=== PATIENT | male | born 1985 | race African-American/Black ===

== ENCOUNTER 2020-09-28 20:37 | Inpatient (IN) | payer MEDICAID, OTHER ==
[~2020-09-28] VITALS: Ht 182.9 cm; Wt 181.4 kg
[~2020-09-28 20:37] MED LIST: ALBU6.7H9 INH; APIX5TAB PO; FERR325T6 PO; FURO-151 MT; LEVO500T89 MT; PROM6.254 PO; REV20 PO; TOPUD PO
[2020-09-28 22:48] LABS: HEMATOCRIT. 32.8 % (42.0-52.0); HEMOGLOBIN. 10.8 g/dL (14.0-18.0); MEAN CORPUSCULAR HEMOGLOBIN 29.9 pg (28.0-32.0); MEAN CORPUSCULAR VOLUME 90.5 fL (80.0-94.0); MEAN PLATELET VOLUME 6.3 fl (7.4-10.4); PLATELET 348 x1000/uL (130-400); RED BLOOD CELL COUNT 3.62 mill/uL (4.7-6.1); RED CELL DISTRIBUTION WIDTH 18.3 % (11.6-14.6)
[2020-09-28 22:55] LABS: CHLORIDE 103 mEq/L (98-107)
[2020-09-28] MEDS ORDERED: HEPARIN 5000 UNITS/ML VIAL IV PRN ×2 (23:30)
[2020-09-28] MEDS ORDERED: HEPARIN 25,000 UNITS PREMIX 250 ML IV PRN (23:30)
[2020-09-29] MEDS ORDERED: IOHEXOL-350 100 ML BOTTLE ONE (01:07)
[2020-09-29 01:43] LABS: PLATELET ESTIMATE NORMAL
[2020-09-29] MEDS ORDERED: APIXABAN 5 MG TABLET PO SCH ×2 (02:00→12:15)
[2020-09-29] MEDS ORDERED: MORPHINE SULFATE 2 MG/ML CPJ (NOT FOR IM USE) IV SCH (05:30)
[2020-09-29] MEDS ORDERED: ONDANSETRON HCL 4MG/2ML INJ IV PRN (09:15)
[2020-09-29 10:34] VITALS: BP 121/64
[2020-09-29 12:27] VITALS: BP 126/61
[2020-09-29] MEDS: APIXABAN 5 MG TABLET PO SCH ×2 (13:00→20:55)
[2020-09-29] MEDS ORDERED: FUROSEMIDE 40MG/4ML VIAL IVP SCH (15:00)
[2020-09-29] MEDS ORDERED: SILDENAFIL CITRATE 20MG TABLET PO SCH (15:00)
[2020-09-29 16:12] VITALS: BP 123/68
[2020-09-29] MEDS: ACETAMINOPHEN 325MG TABLET PO PRN (18:34)
[2020-09-29] MEDS: FUROSEMIDE 40MG/4ML VIAL IVP SCH (18:36)
[2020-09-29] MEDS: SILDENAFIL CITRATE 20MG TABLET PO SCH ×2 (18:36→20:55)
[2020-09-29 20:00] VITALS: BP 129/75
[2020-09-29] MEDS: FAMOTIDINE 20MG TABLET PO SCH (20:54)
[2020-09-29] MEDS: GUAIFENESIN 600MG ER TABLET PO SCH (20:55)
[2020-09-29 23:00] LABS: *AMPHETAMINES SCREEN URINE NEGATIVE (NEGATIVE); *BARBITURATES SCREEN URINE NEGATIVE (NEGATIVE); *BENZODIAZEPINES SCREEN URINE NEGATIVE (NEGATIVE); *COCAINE SCREEN URINE NEGATIVE (NEGATIVE); METHADONE URINE SCREEN NEGATIVE (NEGATIVE); OPIATES URINE SCREEN NEGATIVE (NEGATIVE)
[2020-09-29 23:01] LABS: CANNABINOID URINE SCREEN NEGATIVE (NEGATIVE); PHENCYCLIDINE URINE SCREEN NEGATIVE (NEGATIVE)
[2020-09-30] VITALS (7 sets, daily range): BP systolic 116–138; BP diastolic 69–84
[2020-09-30] MEDS: ACETAMINOPHEN 325MG TABLET PO PRN ×3 (04:58→21:49)
[2020-09-30] MEDS ORDERED: MORPHINE SULFATE 2 MG/ML CPJ (NOT FOR IM USE) IV PRN (05:00)
[2020-09-30 05:43] LABS: BASOPHILS % 0.2 % (0.0-2.0); EOSINOPHILS % 1.2 % (0.0-5.0); HEMATOCRIT. 33.1 % (42.0-52.0); HEMOGLOBIN. 10.6 g/dL (14.0-18.0); LYMPHOCYTES % 27.6 % (20.0-50.0); MEAN CORPUSCULAR HEMOGLOBIN 28.9 pg (28.0-32.0); MEAN PLATELET VOLUME 6.5 fl (7.4-10.4); MONOCYTES % 12.6 % (2.0-8.0); NEUTROPHILS % 58.4 % (40.0-76.0); PLATELET 336 x1000/uL (130-400); RED BLOOD CELL COUNT 3.68 mill/uL (4.7-6.1); RED CELL DISTRIBUTION WIDTH 17.9 % (11.6-14.6)
[2020-09-30 05:48] LABS: CHLORIDE 105 mEq/L (98-107)
[2020-09-30] MEDS: SILDENAFIL CITRATE 20MG TABLET PO SCH ×3 (06:00→21:31)
[2020-09-30] MEDS: APIXABAN 5 MG TABLET PO SCH ×2 (08:37→17:33)
[2020-09-30] MEDS: GUAIFENESIN 600MG ER TABLET PO SCH ×2 (08:37→21:28)
[2020-09-30] MEDS: FUROSEMIDE 40MG/4ML VIAL IVP SCH (08:37)
[2020-09-30] MEDS: IPRATROPIUM/ALBUTEROL 0.5-3(2.5)MG/3ML NEB HHN PRN (12:36)
[2020-09-30] MEDS ORDERED: HYDROCODONE/ACETAMINOPHEN 5/325MG TABLET PO PRN (13:00)
[2020-09-30] MEDS: CEFTRIAXONE 1,000 MG in DEXTROSE 5% WATER 50 ML IV SCH (14:54)
[2020-09-30] MEDS: FAMOTIDINE 20MG TABLET PO SCH (21:28)
[2020-10-01] MEDS ORDERED: HYDROCODONE/ACETAMINOPHEN 10/325MG TABLET PO PRN (01:30)
[2020-10-01 05:56] VITALS: BP 149/80
[2020-10-01 06:20] LABS: CHLORIDE 103 mEq/L (98-107)
[2020-10-01] MEDS: SILDENAFIL CITRATE 20MG TABLET PO SCH ×3 (06:37→20:59)
[2020-10-01 07:09] LABS: HEMATOCRIT. 32.9 % (42.0-52.0); HEMOGLOBIN. 10.6 g/dL (14.0-18.0); MEAN CORPUSCULAR HEMOGLOBIN 29.4 pg (28.0-32.0); MEAN CORPUSCULAR VOLUME 90.9 fL (80.0-94.0); MEAN PLATELET VOLUME 6.6 fl (7.4-10.4); PLATELET 337 x1000/uL (130-400); RED BLOOD CELL COUNT 3.62 mill/uL (4.7-6.1); RED CELL DISTRIBUTION WIDTH 18.1 % (11.6-14.6)
[2020-10-01 08:00] VITALS: BP 138/74
[2020-10-01] MEDS: APIXABAN 5 MG TABLET PO SCH ×2 (08:26→16:40)
[2020-10-01] MEDS: FUROSEMIDE 40MG/4ML VIAL IVP SCH (08:26)
[2020-10-01] MEDS: AZITHROMYCIN 250 MG TABLET PO SCH (08:26)
[2020-10-01] MEDS: GUAIFENESIN 600MG ER TABLET PO SCH ×2 (08:26→22:16)
[2020-10-01] MEDS ORDERED: POTASSIUM CHLORIDE 20MEQ TABLET SR PO SCH (08:45)
[2020-10-01] MEDS ORDERED: PHENOL/SODIUM PHENOLATE 1.4% SRPAY 177ML MM ONE (11:30)
[2020-10-01 12:00] VITALS: BP 136/72
[2020-10-01] MEDS: ACETAMINOPHEN 325MG TABLET PO PRN ×2 (12:11→20:58)
[2020-10-01] MEDS: IPRATROPIUM/ALBUTEROL 0.5-3(2.5)MG/3ML NEB HHN PRN ×3 (12:13→20:34)
[2020-10-01 13:04] LABS: PLATELET ESTIMATE NORMAL
[2020-10-01] MEDS: CEFTRIAXONE 1,000 MG in DEXTROSE 5% WATER 50 ML IV SCH (13:34)
[2020-10-01 16:00] VITALS: BP 144/79
[2020-10-01 20:00] VITALS: BP 125/88
[2020-10-01] MEDS: FAMOTIDINE 20MG TABLET PO SCH (20:58)
[2020-10-02] VITALS: BP 112/50
[2020-10-02 04:00] VITALS: BP 123/54
[2020-10-02] MEDS: IPRATROPIUM/ALBUTEROL 0.5-3(2.5)MG/3ML NEB HHN PRN ×3 (04:12→11:59)
[2020-10-02] MEDS: SILDENAFIL CITRATE 20MG TABLET PO SCH ×3 (06:35→21:59)
[2020-10-02 08:00] VITALS: BP 118/63
[2020-10-02] MEDS: AZITHROMYCIN 250 MG TABLET PO SCH (08:28)
[2020-10-02] MEDS: APIXABAN 5 MG TABLET PO SCH ×2 (08:28→17:16)
[2020-10-02] MEDS: FUROSEMIDE 40MG/4ML VIAL IVP SCH (08:28)
[2020-10-02] MEDS: GUAIFENESIN 600MG ER TABLET PO SCH ×2 (08:28→21:59)
[2020-10-02] MEDS ORDERED: PHENOL/SODIUM PHENOLATE 1.4% SRPAY 177ML MM PRN (10:30)
[2020-10-02 12:00] VITALS: BP 119/57
[2020-10-02] MEDS: CEFTRIAXONE 1,000 MG in DEXTROSE 5% WATER 50 ML IV SCH (15:00)
[2020-10-02 16:00] VITALS: BP 117/54
[2020-10-02] MEDS: IPRATROPIUM/ALBUTEROL 0.5-3(2.5)MG/3ML NEB HHN SCH (21:10)
[2020-10-02] MEDS: FAMOTIDINE 20MG TABLET PO SCH (21:59)
[2020-10-03] VITALS: BP 115/65
[2020-10-03] MEDS: IPRATROPIUM/ALBUTEROL 0.5-3(2.5)MG/3ML NEB HHN SCH ×4 (00:40→21:20)
[2020-10-03 04:00] VITALS: BP 114/58
[2020-10-03] MEDS: SILDENAFIL CITRATE 20MG TABLET PO SCH ×3 (06:39→21:57)
[2020-10-03] MEDS: GUAIFENESIN-DM 200MG-20MG/10ML UDC PO PRN (06:48)
[2020-10-03 08:58] VITALS: BP 88/35
[2020-10-03] MEDS: GUAIFENESIN 600MG ER TABLET PO SCH ×2 (09:00→21:57)
[2020-10-03] MEDS: FUROSEMIDE 40MG/4ML VIAL IVP SCH (09:00)
[2020-10-03] MEDS: AZITHROMYCIN 250 MG TABLET PO SCH (09:38)
[2020-10-03] MEDS: APIXABAN 5 MG TABLET PO SCH ×2 (09:38→18:04)
[2020-10-03] MEDS ORDERED: SODIUM CHLORIDE 0.9% 500 ML IV ONE (09:45)
[2020-10-03 11:49] VITALS: BP 116/75
[2020-10-03] MEDS ORDERED: FUROSEMIDE 40MG/4ML VIAL IVP SCH (13:00)
[2020-10-03] MEDS: CEFTRIAXONE 1,000 MG in DEXTROSE 5% WATER 50 ML IV SCH (13:18)
[2020-10-03 16:22] VITALS: BP 113/71
[2020-10-03] MEDS ORDERED: ALBU6.7H9 INH (16:59)
[2020-10-03] MEDS ORDERED: REV20 PO (16:59)
[2020-10-03] MEDS ORDERED: FURO-151 MT (16:59)
[2020-10-03] MEDS ORDERED: LEVO500T89 MT (16:59)
[2020-10-03] MEDS ORDERED: APIX5TAB PO (16:59)
[2020-10-03 20:00] VITALS: BP 130/95
[2020-10-03] MEDS: FAMOTIDINE 20MG TABLET PO SCH (21:57)
[2020-10-04] VITALS: BP 120/60
[2020-10-04] MEDS: IPRATROPIUM/ALBUTEROL 0.5-3(2.5)MG/3ML NEB HHN SCH ×3 (01:41→14:23)
[2020-10-04 04:00] VITALS: BP 116/50
[2020-10-04] MEDS: SILDENAFIL CITRATE 20MG TABLET PO SCH ×2 (06:34→13:53)
[2020-10-04] MEDS: APIXABAN 5 MG TABLET PO SCH (08:24)
[2020-10-04] MEDS: AZITHROMYCIN 250 MG TABLET PO SCH (08:24)
[2020-10-04] MEDS: GUAIFENESIN 600MG ER TABLET PO SCH (08:24)
[2020-10-04 08:25] VITALS: BP 104/57
[2020-10-04 11:51] VITALS: BP 111/69
[2020-10-04] MEDS: GUAIFENESIN-DM 200MG-20MG/10ML UDC PO PRN (13:54)
[2020-10-04 14:45] VITALS: BP 111/69
== END 2020-10-04 15:15 | disposition home or self-care (01) | DRG 720 ==
LOC: ER 20:37 → 8WST 22:55 → ENRESERV 09-29 08:39
PROVIDERS: ADMIT Internal Medicine; ATTEND Internal Medicine
DX: A41.9 Sepsis, unspecified organism (principal); J96.21 Acute and chronic respiratory failure with hypoxia; I50.31 Acute diastolic (congestive) heart failure; E44.0 Moderate protein-calorie malnutrition; J18.9 Pneumonia, unspecified organism; I27.24 Chronic thromboembolic pulmonary hypertension; E66.01 Morbid (severe) obesity due to excess calories; I11.0 Hypertensive heart disease with heart failure; Z68.43 Body mass index [BMI] 50.0-59.9, adult; J45.909 Unspecified asthma, uncomplicated; D64.9 Anemia, unspecified; D72.819 Decreased white blood cell count, unspecified; R74.01 Elevation of levels of liver transaminase levels; G47.33 Obstructive sleep apnea (adult) (pediatric); Z99.81 Dependence on supplemental oxygen; Z86.16 Personal history of COVID-19; Z87.01 Personal history of pneumonia (recurrent); Z86.711 Personal history of pulmonary embolism; Z79.01 Long term (current) use of anticoagulants; Z79.899 Other long term (current) drug therapy; Z79.84 Long term (current) use of oral hypoglycemic drugs; M94.0 Chondrocostal junction syndrome [Tietze]; R79.89 Other specified abnormal findings of blood chemistry
CPT/HCPCS: 36415; 71045; 71275; 80048; 80053; 80305; 82962; 83880; 84484; 85025; 93005; 94640; 97162; 99285; J0696; J1940; J2270; J7040; J7060; Q9967

== ENCOUNTER 2020-12-04 11:50 | Inpatient (IN) | payer MEDICAID, OTHER ==
[~2020-12-04] VITALS: Ht 175.3 cm; Wt 174.6 kg
[2020-12-04 20:12] LABS: BASOPHILS % 0.2 % (0.0-2.0); EOSINOPHILS % 2.5 % (0.0-5.0); HEMATOCRIT. 32.8 % (42.0-52.0); HEMOGLOBIN. 10.7 g/dL (14.0-18.0); LYMPHOCYTES % 30.9 % (20.0-50.0); MEAN PLATELET VOLUME 6.9 fl (7.4-10.4); MONOCYTES % 6.7 % (2.0-8.0); NEUTROPHILS % 59.7 % (40.0-76.0); PLATELET 353 x1000/uL (130-400); RED BLOOD CELL COUNT 3.68 mill/uL (4.7-6.1); RED CELL DISTRIBUTION WIDTH 17.5 % (11.6-14.6)
[2020-12-04 20:18] LABS: CHLORIDE 105 mEq/L (98-107)
[2020-12-04 20:21] LABS: PROTHROMBIN TIME 11.1 sec (9.6-11.0)
[2020-12-05] MEDS ORDERED: CEFTRIAXONE 1 G PREMIX 50 ML IV ONE (03:45)
[2020-12-05] MEDS ORDERED: AZITHROMYCIN 500 MG in DEXT 5% WATER 250 ML IV SCH (03:45)
[2020-12-05] MEDS ORDERED: IOHEXOL-350 100 ML BOTTLE ONE (06:13)
[2020-12-05 08:00] VITALS: BP 145/58
[2020-12-05 09:00] VITALS: BP 145/85
[2020-12-05] MEDS ORDERED: ONDANSETRON HCL 4MG/2ML INJ IV PRN (10:15)
[2020-12-05] MEDS ORDERED: ACETAMINOPHEN 325MG TABLET PO PRN (10:15)
[2020-12-05] MEDS: APIXABAN 5 MG TABLET PO SCH ×2 (10:57→17:16)
[2020-12-05] MEDS: FUROSEMIDE 40MG/4ML VIAL IVP SCH (10:57)
[2020-12-05 12:00] VITALS: BP 133/52
[2020-12-05] MEDS: CEFTRIAXONE 1,000 MG in DEXTROSE 5% WATER 50 ML IV SCH (13:15)
[2020-12-05] MEDS: SILDENAFIL CITRATE 20MG TABLET PO SCH ×2 (13:19→21:04)
[2020-12-05] MEDS: IPRATROPIUM/ALBUTEROL 0.5-3(2.5)MG/3ML NEB HHN SCH ×2 (14:15→20:53)
[2020-12-05 16:00] VITALS: BP 114/72
[2020-12-05 20:00] VITALS: BP 118/63
[2020-12-05] MEDS ORDERED: HYDROCODONE/ACETAMINOPHEN 5/325MG TABLET PO PRN (20:30)
[2020-12-05] MEDS ORDERED: NALOXONE HCL 0.4MG/ML VIAL IV PRN (20:45)
[2020-12-05 23:44] VITALS: BP 111/65
[2020-12-06] MEDS: IPRATROPIUM/ALBUTEROL 0.5-3(2.5)MG/3ML NEB HHN SCH ×4 (01:42→21:03)
[2020-12-06 04:00] VITALS: BP 129/80
[2020-12-06] MEDS: SILDENAFIL CITRATE 20MG TABLET PO SCH ×3 (05:01→20:51)
[2020-12-06 08:00] VITALS: BP 114/70
[2020-12-06] MEDS: APIXABAN 5 MG TABLET PO SCH ×2 (09:45→18:44)
[2020-12-06] MEDS: FUROSEMIDE 40MG/4ML VIAL IVP SCH (09:45)
[2020-12-06] MEDS: AZITHROMYCIN 250 MG TABLET PO SCH (09:45)
[2020-12-06 12:00] VITALS: BP 123/54
[2020-12-06] MEDS: CEFTRIAXONE 1,000 MG in DEXTROSE 5% WATER 50 ML IV SCH (12:50)
[2020-12-06 16:00] VITALS: BP 121/65
[2020-12-06] MEDS ORDERED: MULT-1146 MT (18:19)
[2020-12-06 20:00] VITALS: BP_SYST 114; BP_SYST 127; BP_DIAS 68; BP_DIAS 82
[2020-12-07] VITALS: BP 113/59
[2020-12-07] MEDS: IPRATROPIUM/ALBUTEROL 0.5-3(2.5)MG/3ML NEB HHN SCH ×3 (01:24→14:10)
[2020-12-07 04:00] VITALS: BP 107/53
[2020-12-07] MEDS: SILDENAFIL CITRATE 20MG TABLET PO SCH ×2 (06:01→15:31)
[2020-12-07] MEDS: APIXABAN 5 MG TABLET PO SCH (09:41)
[2020-12-07] MEDS: FUROSEMIDE 40MG/4ML VIAL IVP SCH (09:41)
[2020-12-07] MEDS: AZITHROMYCIN 250 MG TABLET PO SCH (09:41)
[2020-12-07] MEDS ORDERED: APIX5TAB PO (11:03)
[2020-12-07] MEDS ORDERED: FURO-151 MT (11:03)
[2020-12-07] MEDS ORDERED: REV20 PO (11:03)
[2020-12-07] MEDS ORDERED: METOPROLOL TARTRATE 25MG TABLET PO SCH (12:00)
[2020-12-07 14:18] VITALS: BP 118/62
[2020-12-07 14:35] VITALS: BP 118/62
[2020-12-07] MEDS: CEFTRIAXONE 1,000 MG in DEXTROSE 5% WATER 50 ML IV SCH (15:31)
[2020-12-07] MEDS ORDERED: PREDNISONE 20MG TABLET PO SCH (16:15)
== END 2020-12-07 17:30 | disposition home or self-care (01) | DRG 133 ==
LOC: ER 11:50 → 8WST 12-05 04:43 → EDBEDREQ 12-05 04:51 → EDBEDREQTM 12-05 04:51 → ENRESERV 12-05 07:32
PROVIDERS: ADMIT Internal Medicine; ATTEND Internal Medicine
DX: J96.21 Acute and chronic respiratory failure with hypoxia (principal); I50.31 Acute diastolic (congestive) heart failure; J18.9 Pneumonia, unspecified organism; I27.20 Pulmonary hypertension, unspecified; I31.3 Pericardial effusion (noninflammatory); I11.0 Hypertensive heart disease with heart failure; E66.01 Morbid (severe) obesity due to excess calories; E44.1 Mild protein-calorie malnutrition; D64.9 Anemia, unspecified; G47.33 Obstructive sleep apnea (adult) (pediatric); Z60.2 Problems related to living alone; J45.909 Unspecified asthma, uncomplicated; Z86.711 Personal history of pulmonary embolism; Z68.43 Body mass index [BMI] 50.0-59.9, adult; Z79.899 Other long term (current) drug therapy; Z79.01 Long term (current) use of anticoagulants; Z71.3 Dietary counseling and surveillance; Z99.81 Dependence on supplemental oxygen; Z86.16 Personal history of COVID-19
CPT/HCPCS: 36415; 71045; 71275; 80053; 83735; 83880; 84484; 85025; 93005; 93306; 94640; 99285; J0456; J0696; J1940; J7060; Q9967

== ENCOUNTER 2021-04-26 12:36 | Inpatient (IN) | payer MEDICAID, OTHER ==
[~2021-04-26] VITALS: Ht 175.3 cm; Wt 176.9 kg
[~2021-04-26 12:36] MED LIST changes: -LEVO500T89 MT; +MULT-1146 MT
[2021-04-26 15:12] LABS: BASOPHILS % 0.5 % (0.0-2.0); HEMATOCRIT. 30.3 % (42.0-52.0); HEMOGLOBIN. 9.5 g/dL (14.0-18.0); LYMPHOCYTES % 25.9 % (20.0-50.0); MEAN CORPUSCULAR HEMOGLOBIN 27.1 pg (28.0-32.0); MEAN CORPUSCULAR VOLUME 86.5 fL (80.0-94.0); MEAN PLATELET VOLUME 6.7 fl (7.4-10.4); NEUTROPHILS % 60.6 % (40.0-76.0); PLATELET 419 x1000/uL (130-400); RED CELL DISTRIBUTION WIDTH 19.6 % (11.6-14.6)
[2021-04-26 15:17] LABS: CHLORIDE 103 mEq/L (98-107)
[2021-04-26] MEDS ORDERED: AZITHROMYCIN 500MG/250ML 250 ML IV ONE (19:30)
[2021-04-26] MEDS ORDERED: CEFTRIAXONE 1 G PREMIX 50 ML IV ONE (19:30)
[2021-04-26] MEDS ORDERED: ASPIRIN 81MG TABLET PO ONE (19:30)
[2021-04-26] MEDS ORDERED: ENOXAPARIN 150MG/ML SYR SUBCUT ONE (19:45)
[2021-04-26 23:00] VITALS: BP 126/59
[2021-04-26 23:55] VITALS: BP 126/59
[2021-04-27] MEDS ORDERED: CEFTRIAXONE 1 G PREMIX 50 ML IV SCH (00:30)
[2021-04-27] MEDS: HYDROCODONE/ACETAMINOPHEN 5/325MG TABLET PO PRN ×3 (00:57→16:36)
[2021-04-27 04:00] VITALS: BP 106/47
[2021-04-27] MEDS: IPRATROPIUM/ALBUTEROL 0.5-3(2.5)MG/3ML NEB HHN PRN (04:55)
[2021-04-27 06:50] LABS: BASOPHILS % 0.2 % (0.0-2.0); EOSINOPHILS % 3.7 % (0.0-5.0); HEMATOCRIT. 28.1 % (42.0-52.0); LYMPHOCYTES % 27.6 % (20.0-50.0); MEAN CORPUSCULAR HEMOGLOBIN 27.8 pg (28.0-32.0); MEAN CORPUSCULAR VOLUME 86.5 fL (80.0-94.0); MEAN PLATELET VOLUME 6.7 fl (7.4-10.4); NEUTROPHILS % 60.5 % (40.0-76.0); PLATELET 406 x1000/uL (130-400); RED BLOOD CELL COUNT 3.25 mill/uL (4.7-6.1); RED CELL DISTRIBUTION WIDTH 19.1 % (11.6-14.6)
[2021-04-27 07:00] LABS: CHLORIDE 104 mEq/L (98-107)
[2021-04-27 07:14] LABS: LDL CHOLESTEROL 118 mg/dL (5-100)
[2021-04-27 07:16] LABS: HDL CHOLESTEROL 28 mg/dL (40-59)
[2021-04-27 07:18] LABS: CREATINE KINASE MB FRACTION 37.1 ng/mL (0.5-3.6)
[2021-04-27 07:20] LABS: CREATINE KINASE 2115 IU/L (39-308)
[2021-04-27 08:00] VITALS: BP 114/55
[2021-04-27] MEDS: ASPIRIN 81MG TABLET PO SCH (08:42)
[2021-04-27 12:00] VITALS: BP 142/73
[2021-04-27] MEDS ORDERED: IOHEXOL-350 100 ML BOTTLE ONE (12:07)
[2021-04-27] MEDS: SODIUM CHLORIDE 0.9% 1,000 ML IV SCH ×2 (13:00→23:33)
[2021-04-27] MEDS: SILDENAFIL CITRATE 20MG TABLET PO SCH ×2 (13:31→21:10)
[2021-04-27 15:47] LABS: CREATINE KINASE MB FRACTION 49.9 ng/mL (0.5-3.6)
[2021-04-27 16:00] VITALS: BP 121/74
[2021-04-27] MEDS: APIXABAN 5 MG TABLET PO SCH (16:36)
[2021-04-27 19:07] LABS: CLARITY URINE CLEAR (CLEAR); COLOR URINE YELLOW (YELLOW); KETONES URINE TRACE (NEGATIVE); LEUKOCYTE ESTERASE URINE TRACE (NEGATIVE); NITRITE URINE NEGATIVE (NEGATIVE); OCCULT BLOOD URINE NEGATIVE (NEGATIVE); PH URINE 5.5 (4.5-8.0); PROTEIN URINE TRACE (NEGATIVE); SPECIFIC GRAVITY URINE 1.032 (1.005-1.030); UROBILINOGEN URINE 0.2 E.U./dL (0.2-1.0)
[2021-04-27 19:37] LABS: *AMPHETAMINES SCREEN URINE NEGATIVE (NEGATIVE); METHADONE URINE SCREEN NEGATIVE (NEGATIVE)
[2021-04-27 19:48] LABS: *BENZODIAZEPINES SCREEN URINE NEGATIVE (NEGATIVE); *COCAINE SCREEN URINE NEGATIVE (NEGATIVE); CANNABINOID URINE SCREEN NEGATIVE (NEGATIVE); OPIATES URINE SCREEN PRESUMTIVE POSITIVE (NEGATIVE); PHENCYCLIDINE URINE SCREEN NEGATIVE (NEGATIVE)
[2021-04-27 19:49] LABS: *BARBITURATES SCREEN URINE NEGATIVE (NEGATIVE)
[2021-04-27 20:00] VITALS: BP 126/55
[2021-04-27] MEDS: ACETAMINOPHEN 325MG TABLET PO PRN (21:10)
[2021-04-27] MEDS ORDERED: NALOXONE HCL 0.4MG/ML VIAL IV PRN (21:15)
[2021-04-27] MEDS: AZITHROMYCIN 500 MG in DEXT 5% WATER 250 ML IV SCH (22:16)
[2021-04-27] MEDS: CEFTRIAXONE 1,000 MG in DEXTROSE 5% WATER 50 ML IV SCH (22:17)
[2021-04-28] VITALS: BP 113/39
[2021-04-28 04:00] VITALS: BP 121/65
[2021-04-28] MEDS: SILDENAFIL CITRATE 20MG TABLET PO SCH ×3 (05:27→21:24)
[2021-04-28] MEDS: IPRATROPIUM/ALBUTEROL 0.5-3(2.5)MG/3ML NEB HHN PRN ×2 (05:50→12:12)
[2021-04-28 07:25] LABS: BASOPHILS % 0.4 % (0.0-2.0); EOSINOPHILS % 3.3 % (0.0-5.0); HEMATOCRIT. 28.5 % (42.0-52.0); HEMOGLOBIN. 9.2 g/dL (14.0-18.0); LYMPHOCYTES % 23.6 % (20.0-50.0); MEAN CORPUSCULAR VOLUME 86.2 fL (80.0-94.0); MEAN PLATELET VOLUME 6.7 fl (7.4-10.4); NEUTROPHILS % 65.7 % (40.0-76.0); PLATELET 401 x1000/uL (130-400); RED CELL DISTRIBUTION WIDTH 19.1 % (11.6-14.6)
[2021-04-28 08:00] VITALS: BP 144/47
[2021-04-28 08:01] LABS: CHLORIDE 102 mEq/L (98-107)
[2021-04-28] MEDS: ACETAMINOPHEN 325MG TABLET PO PRN ×2 (08:07→21:24)
[2021-04-28] MEDS: SODIUM CHLORIDE 0.9% 1,000 ML IV SCH ×2 (08:08→19:00)
[2021-04-28] MEDS: APIXABAN 5 MG TABLET PO SCH ×3 (08:15→16:17)
[2021-04-28] MEDS: ASPIRIN 81MG TABLET PO SCH (08:15)
[2021-04-28] MEDS ORDERED: IOHEXOL-350 100 ML BOTTLE ONE (09:24)
[2021-04-28 12:00] VITALS: BP 131/72
[2021-04-28 16:12] VITALS: BP 18/54
[2021-04-28] MEDS: FUROSEMIDE 40MG TABLET PO SCH (16:25)
[2021-04-28 20:00] VITALS: BP 119/61
[2021-04-28] MEDS: CEFTRIAXONE 1,000 MG in DEXTROSE 5% WATER 50 ML IV SCH (21:24)
[2021-04-28] MEDS: AZITHROMYCIN 500 MG in DEXT 5% WATER 250 ML IV SCH (21:24)
[2021-04-29] VITALS: BP 120/52
[2021-04-29 04:00] VITALS: BP 114/43
[2021-04-29] MEDS: SODIUM CHLORIDE 0.9% 1,000 ML IV SCH ×2 (05:00→15:00)
[2021-04-29 05:35] LABS: BASOPHILS % 0.2 % (0.0-2.0); EOSINOPHILS % 4.2 % (0.0-5.0); HEMATOCRIT. 26.6 % (42.0-52.0); HEMOGLOBIN. 8.7 g/dL (14.0-18.0); LYMPHOCYTES % 18.6 % (20.0-50.0); MEAN CORPUSCULAR HEMOGLOBIN 28.4 pg (28.0-32.0); MEAN CORPUSCULAR VOLUME 86.6 fL (80.0-94.0); MEAN PLATELET VOLUME 6.9 fl (7.4-10.4); MONOCYTES % 7.2 % (2.0-8.0); NEUTROPHILS % 69.8 % (40.0-76.0); PLATELET 385 x1000/uL (130-400); RED BLOOD CELL COUNT 3.07 mill/uL (4.7-6.1); RED CELL DISTRIBUTION WIDTH 19.3 % (11.6-14.6)
[2021-04-29 05:58] LABS: CHLORIDE 104 mEq/L (98-107)
[2021-04-29] MEDS: SILDENAFIL CITRATE 20MG TABLET PO SCH ×3 (06:45→22:07)
[2021-04-29] MEDS: ACETAMINOPHEN 325MG TABLET PO PRN ×2 (06:45→22:08)
[2021-04-29 08:00] VITALS: BP 129/69
[2021-04-29] MEDS: ASPIRIN 81MG TABLET PO SCH (10:55)
[2021-04-29] MEDS: FUROSEMIDE 40MG TABLET PO SCH (10:55)
[2021-04-29 12:00] VITALS: BP 125/63
[2021-04-29] MEDS: GUAIFENESIN 200MG/10ML SUGAR FREE UDC PO PRN (15:50)
[2021-04-29] MEDS: AZITHROMYCIN 500 MG TABLET PO SCH (15:56)
[2021-04-29 16:00] VITALS: BP 122/66
[2021-04-29] MEDS: APIXABAN 5 MG TABLET PO SCH (16:03)
[2021-04-29 18:25] LABS: CREATINE KINASE 2895 IU/L (39-308)
[2021-04-29 20:00] VITALS: BP 133/63
[2021-04-29] MEDS: CEFTRIAXONE 1,000 MG in DEXTROSE 5% WATER 50 ML IV SCH (20:48)
[2021-04-30] VITALS: BP 105/46
[2021-04-30] MEDS: SODIUM CHLORIDE 0.9% 1,000 ML IV SCH ×2 (01:16→11:00)
[2021-04-30 04:00] VITALS: BP 113/54
[2021-04-30 05:36] LABS: BASOPHILS % 0.3 % (0.0-2.0); HEMATOCRIT. 26.1 % (42.0-52.0); HEMOGLOBIN. 8.5 g/dL (14.0-18.0); LYMPHOCYTES % 24.5 % (20.0-50.0); MEAN CORPUSCULAR HEMOGLOBIN 27.8 pg (28.0-32.0); MEAN PLATELET VOLUME 6.7 fl (7.4-10.4); MONOCYTES % 9.1 % (2.0-8.0); NEUTROPHILS % 61.1 % (40.0-76.0); PLATELET 398 x1000/uL (130-400); RED BLOOD CELL COUNT 3.04 mill/uL (4.7-6.1); RED CELL DISTRIBUTION WIDTH 19.3 % (11.6-14.6)
[2021-04-30 06:03] LABS: CHLORIDE 104 mEq/L (98-107)
[2021-04-30] MEDS: SILDENAFIL CITRATE 20MG TABLET PO SCH ×3 (06:38→21:50)
[2021-04-30] MEDS: APIXABAN 5 MG TABLET PO SCH ×2 (08:24→17:01)
[2021-04-30] MEDS: FUROSEMIDE 40MG TABLET PO SCH (08:24)
[2021-04-30] MEDS: ASPIRIN 81MG TABLET PO SCH (08:24)
[2021-04-30] MEDS: AZITHROMYCIN 500 MG TABLET PO SCH (13:21)
[2021-04-30 20:00] VITALS: BP 112/48
[2021-04-30] MEDS: CEFTRIAXONE 1,000 MG in DEXTROSE 5% WATER 50 ML IV SCH (21:49)
[2021-04-30] MEDS: ACETAMINOPHEN 325MG TABLET PO PRN (23:59)
[2021-05-01] VITALS: BP 116/50
[2021-05-01 04:00] VITALS: BP 137/71
[2021-05-01] MEDS: SILDENAFIL CITRATE 20MG TABLET PO SCH ×3 (05:10→21:45)
[2021-05-01 07:54] LABS: BASOPHILS % 0.4 % (0.0-2.0); EOSINOPHILS % 2.4 % (0.0-5.0); LYMPHOCYTES % 16.3 % (20.0-50.0); MEAN PLATELET VOLUME 6.8 fl (7.4-10.4); NEUTROPHILS % 71.9 % (40.0-76.0); PLATELET 371 x1000/uL (130-400); RED BLOOD CELL COUNT 3.21 mill/uL (4.7-6.1); RED CELL DISTRIBUTION WIDTH 19.3 % (11.6-14.6)
[2021-05-01 08:00] VITALS: BP 119/49
[2021-05-01 08:02] LABS: CHLORIDE 103 mEq/L (98-107)
[2021-05-01 08:22] LABS: CREATINE KINASE 3038 IU/L (39-308)
[2021-05-01] MEDS: ASPIRIN 81MG TABLET PO SCH (09:33)
[2021-05-01] MEDS: ACETAMINOPHEN 325MG TABLET PO PRN ×2 (09:34→21:46)
[2021-05-01] MEDS: FUROSEMIDE 40MG/4ML VIAL IVP SCH (09:34)
[2021-05-01] MEDS: APIXABAN 5 MG TABLET PO SCH ×2 (09:34→17:54)
[2021-05-01 12:00] VITALS: BP 120/55
[2021-05-01 16:00] VITALS: BP 122/57
[2021-05-01 20:00] VITALS: BP 111/42
[2021-05-01] MEDS: CEFTRIAXONE 1,000 MG in DEXTROSE 5% WATER 50 ML IV SCH (21:44)
[2021-05-01] MEDS: GUAIFENESIN 200MG/10ML SUGAR FREE UDC PO PRN (21:44)
[2021-05-02] VITALS: BP 105/49
[2021-05-02 04:00] VITALS: BP 112/71
[2021-05-02] MEDS: IPRATROPIUM/ALBUTEROL 0.5-3(2.5)MG/3ML NEB HHN SCH ×6 (04:00→20:13)
[2021-05-02] MEDS: ACETYLCYSTEINE 100MG/ML 10% VIAL 4ML INH SCH ×3 (04:00→16:35)
[2021-05-02] MEDS: GUAIFENESIN 200MG/10ML SUGAR FREE UDC PO PRN ×3 (04:46→23:49)
[2021-05-02] MEDS: SILDENAFIL CITRATE 20MG TABLET PO SCH ×3 (06:04→22:16)
[2021-05-02] MEDS: ACETAMINOPHEN 325MG TABLET PO PRN ×3 (06:04→23:49)
[2021-05-02 06:21] LABS: BASOPHILS % 0.3 % (0.0-2.0); EOSINOPHILS % 2.1 % (0.0-5.0); HEMATOCRIT. 28.8 % (42.0-52.0); HEMOGLOBIN. 9.4 g/dL (14.0-18.0); LYMPHOCYTES % 25.1 % (20.0-50.0); MEAN CORPUSCULAR HEMOGLOBIN 28.2 pg (28.0-32.0); MEAN CORPUSCULAR VOLUME 86.7 fL (80.0-94.0); MEAN PLATELET VOLUME 6.8 fl (7.4-10.4); MONOCYTES % 9.6 % (2.0-8.0); NEUTROPHILS % 62.9 % (40.0-76.0); PLATELET 405 x1000/uL (130-400); RED BLOOD CELL COUNT 3.33 mill/uL (4.7-6.1); RED CELL DISTRIBUTION WIDTH 19.5 % (11.6-14.6)
[2021-05-02 06:45] LABS: CHLORIDE 101 mEq/L (98-107)
[2021-05-02 07:05] LABS: CREATINE KINASE 2369 IU/L (39-308)
[2021-05-02 08:00] VITALS: BP 102/41
[2021-05-02] MEDS: FUROSEMIDE 40MG/4ML VIAL IVP SCH (09:09)
[2021-05-02] MEDS: APIXABAN 5 MG TABLET PO SCH ×2 (09:10→16:33)
[2021-05-02] MEDS: ASPIRIN 81MG TABLET PO SCH (09:10)
[2021-05-02] MEDS ORDERED: POTASSIUM CHLORIDE 20MEQ/PACKET PO SCH (10:30)
[2021-05-02 12:00] VITALS: BP 103/46
[2021-05-02 16:00] VITALS: BP 113/53
[2021-05-02 20:00] VITALS: BP 119/52
[2021-05-02] MEDS: CEFTRIAXONE 1,000 MG in DEXTROSE 5% WATER 50 ML IV SCH (21:17)
[2021-05-03] MEDS: ACETYLCYSTEINE 100MG/ML 10% VIAL 4ML INH SCH ×2 (00:10→09:03)
[2021-05-03] MEDS: ALBUTEROL (0.083%) 2.5MG/3ML NEB HHN SCH ×5 (00:10→20:24)
[2021-05-03 04:00] VITALS: BP 105/42
[2021-05-03] MEDS: SILDENAFIL CITRATE 20MG TABLET PO SCH ×2 (06:12→13:45)
[2021-05-03 06:34] LABS: BASOPHILS % 0.2 % (0.0-2.0); EOSINOPHILS % 2.5 % (0.0-5.0); HEMATOCRIT. 26.3 % (42.0-52.0); HEMOGLOBIN. 8.7 g/dL (14.0-18.0); LYMPHOCYTES % 22.2 % (20.0-50.0); MEAN CORPUSCULAR HEMOGLOBIN 28.2 pg (28.0-32.0); MEAN CORPUSCULAR VOLUME 85.1 fL (80.0-94.0); MEAN PLATELET VOLUME 6.9 fl (7.4-10.4); NEUTROPHILS % 65.1 % (40.0-76.0); PLATELET 417 x1000/uL (130-400); RED BLOOD CELL COUNT 3.09 mill/uL (4.7-6.1); RED CELL DISTRIBUTION WIDTH 19.2 % (11.6-14.6)
[2021-05-03 06:45] LABS: CHLORIDE 102 mEq/L (98-107)
[2021-05-03 08:00] VITALS: BP 107/42
[2021-05-03] MEDS: ASPIRIN 81MG TABLET PO SCH (09:24)
[2021-05-03] MEDS: APIXABAN 5 MG TABLET PO SCH ×2 (09:24→16:05)
[2021-05-03] MEDS: FUROSEMIDE 20MG/2ML VIAL IVP SCH (09:24)
[2021-05-03] MEDS: ACETAMINOPHEN 325MG TABLET PO PRN ×2 (09:25→16:05)
[2021-05-03 09:41] LABS: CREATINE KINASE 2283 IU/L (39-308)
[2021-05-03 12:00] VITALS: BP 97/43
[2021-05-03 13:52] VITALS: BP 150/70
[2021-05-03 15:51] VITALS: BP 102/42
[2021-05-03] MEDS: IPRATROPIUM/ALBUTEROL 0.5-3(2.5)MG/3ML NEB HHN PRN (16:49)
[2021-05-03 20:00] VITALS: BP 101/39
[2021-05-04] VITALS: BP 115/40
[2021-05-04] MEDS: ACETYLCYSTEINE 100MG/ML 10% VIAL 4ML INH SCH ×4 (00:24→22:00)
[2021-05-04] MEDS: ALBUTEROL (0.083%) 2.5MG/3ML NEB HHN SCH ×5 (00:24→20:08)
[2021-05-04] MEDS: GUAIFENESIN 200MG/10ML SUGAR FREE UDC PO PRN (00:27)
[2021-05-04] MEDS: SILDENAFIL CITRATE 20MG TABLET PO SCH ×4 (00:27→22:29)
[2021-05-04] MEDS: ACETAMINOPHEN 325MG TABLET PO PRN ×3 (01:39→15:57)
[2021-05-04 04:00] VITALS: BP 138/54
[2021-05-04 06:40] LABS: CHLORIDE 103 mEq/L (98-107)
[2021-05-04 07:02] LABS: CREATINE KINASE 2801 IU/L (39-308)
[2021-05-04 08:00] VITALS: BP 131/62
[2021-05-04] MEDS: FUROSEMIDE 20MG/2ML VIAL IVP SCH (08:14)
[2021-05-04] MEDS: ASPIRIN 81MG TABLET PO SCH (08:14)
[2021-05-04] MEDS: APIXABAN 5 MG TABLET PO SCH ×2 (08:16→15:57)
[2021-05-04 12:00] VITALS: BP 126/70
[2021-05-04] MEDS: SODIUM CHLORIDE 0.9% 1,000 ML IV SCH (14:00)
[2021-05-04 15:49] VITALS: BP 118/69
[2021-05-04 20:00] VITALS: BP 123/53
[2021-05-05] VITALS: BP 110/57
[2021-05-05] MEDS: SODIUM CHLORIDE 0.9% 1,000 ML IV SCH ×4 (00:43→21:00)
[2021-05-05 04:00] VITALS: BP 132/58
[2021-05-05] MEDS: ALBUTEROL (0.083%) 2.5MG/3ML NEB HHN SCH ×6 (04:37→20:18)
[2021-05-05] MEDS: ACETAMINOPHEN 325MG TABLET PO PRN ×2 (05:03→12:55)
[2021-05-05] MEDS: SILDENAFIL CITRATE 20MG TABLET PO SCH ×3 (05:03→21:08)
[2021-05-05 07:16] LABS: CREATINE KINASE 2896 IU/L (39-308)
[2021-05-05 08:00] VITALS: BP 113/53
[2021-05-05] MEDS: ACETYLCYSTEINE 100MG/ML 10% VIAL 4ML INH SCH ×2 (08:59→16:49)
[2021-05-05] MEDS: ASPIRIN 81MG TABLET PO SCH (09:27)
[2021-05-05] MEDS: APIXABAN 5 MG TABLET PO SCH ×2 (09:27→17:32)
[2021-05-05] MEDS: FUROSEMIDE 20MG/2ML VIAL IVP SCH (09:28)
[2021-05-05 12:00] VITALS: BP 109/57
[2021-05-05 16:00] VITALS: BP 125/67
[2021-05-05] MEDS: METHYLPREDNISOLONE SOD SUCC 40 MG/ML VIAL IV SCH (19:00)
[2021-05-05 19:08] LABS: ANA IFA Negative (.)
[2021-05-05 20:00] VITALS: BP 135/62
[2021-05-06] VITALS: BP 115/64
[2021-05-06] MEDS: ALBUTEROL (0.083%) 2.5MG/3ML NEB HHN SCH ×6 (00:06→20:51)
[2021-05-06] MEDS: ACETYLCYSTEINE 100MG/ML 10% VIAL 4ML INH SCH ×3 (00:06→15:53)
[2021-05-06] MEDS: METHYLPREDNISOLONE SOD SUCC 40 MG/ML VIAL IV SCH ×4 (00:17→17:33)
[2021-05-06 04:00] VITALS: BP 118/74
[2021-05-06] MEDS: SILDENAFIL CITRATE 20MG TABLET PO SCH ×3 (05:04→21:00)
[2021-05-06 06:55] LABS: BASOPHILS % 0.2 % (0.0-2.0); EOSINOPHILS % 0.2 % (0.0-5.0); HEMATOCRIT. 27.6 % (42.0-52.0); HEMOGLOBIN. 8.8 g/dL (14.0-18.0); LYMPHOCYTES % 19.2 % (20.0-50.0); MEAN CORPUSCULAR VOLUME 84.9 fL (80.0-94.0); MEAN PLATELET VOLUME 6.8 fl (7.4-10.4); MONOCYTES % 1.9 % (2.0-8.0); NEUTROPHILS % 78.5 % (40.0-76.0); PLATELET 506 x1000/uL (130-400); RED BLOOD CELL COUNT 3.26 mill/uL (4.7-6.1); RED CELL DISTRIBUTION WIDTH 19.2 % (11.6-14.6)
[2021-05-06] MEDS: SODIUM CHLORIDE 0.9% 1,000 ML IV SCH ×2 (07:00→17:33)
[2021-05-06 07:06] LABS: HIV SCREEN 4G Non Reactive (Non Reactive)
[2021-05-06 07:16] LABS: CHLORIDE 103 mEq/L (98-107)
[2021-05-06] MEDS: IPRATROPIUM/ALBUTEROL 0.5-3(2.5)MG/3ML NEB HHN PRN ×2 (07:25→11:04)
[2021-05-06 07:35] LABS: CREATINE KINASE 2767 IU/L (39-308)
[2021-05-06 08:00] VITALS: BP 137/83
[2021-05-06] MEDS: ASPIRIN 81MG TABLET PO SCH (10:28)
[2021-05-06] MEDS: FUROSEMIDE 20MG/2ML VIAL IVP SCH (10:28)
[2021-05-06] MEDS: APIXABAN 5 MG TABLET PO SCH ×2 (10:28→17:33)
[2021-05-06 12:00] VITALS: BP 132/72
[2021-05-06 15:58] VITALS: BP 134/85
[2021-05-06 20:00] VITALS: BP 117/73
[2021-05-07] VITALS: BP 132/74
[2021-05-07] MEDS: ALBUTEROL (0.083%) 2.5MG/3ML NEB HHN SCH ×4 (01:08→20:17)
[2021-05-07] MEDS: SODIUM CHLORIDE 0.9% 1,000 ML IV SCH ×3 (03:00→23:00)
[2021-05-07 04:00] VITALS: BP 119/62
[2021-05-07] MEDS: METHYLPREDNISOLONE SOD SUCC 40 MG/ML VIAL IV SCH ×4 (06:02→18:07)
[2021-05-07 06:11] LABS: CHLORIDE 103 mEq/L (98-107)
[2021-05-07] MEDS: SILDENAFIL CITRATE 20MG TABLET PO SCH ×3 (06:32→21:16)
[2021-05-07 06:36] LABS: BASOPHILS % 0.3 % (0.0-2.0); HEMOGLOBIN. 8.6 g/dL (14.0-18.0); LYMPHOCYTES % 20.7 % (20.0-50.0); MEAN CORPUSCULAR HEMOGLOBIN 27.1 pg (28.0-32.0); MEAN CORPUSCULAR VOLUME 84.9 fL (80.0-94.0); MONOCYTES % 5.9 % (2.0-8.0); NEUTROPHILS % 73.1 % (40.0-76.0); PLATELET 506 x1000/uL (130-400); RED BLOOD CELL COUNT 3.18 mill/uL (4.7-6.1); RED CELL DISTRIBUTION WIDTH 18.9 % (11.6-14.6)
[2021-05-07 08:00] VITALS: BP 121/74
[2021-05-07] MEDS: FUROSEMIDE 20MG/2ML VIAL IVP SCH ×2 (09:02→18:07)
[2021-05-07] MEDS: APIXABAN 5 MG TABLET PO SCH ×2 (09:02→18:07)
[2021-05-07] MEDS: ASPIRIN 81MG TABLET PO SCH (09:02)
[2021-05-07 10:47] LABS: CREATINE KINASE 1315 IU/L (39-308)
[2021-05-07 12:00] VITALS: BP 128/64
[2021-05-07 16:00] VITALS: BP 135/64
[2021-05-07 20:00] VITALS: BP 138/70
[2021-05-08] VITALS (7 sets, daily range): BP systolic 122–156; BP diastolic 56–83
[2021-05-08] MEDS: ALBUTEROL (0.083%) 2.5MG/3ML NEB HHN SCH ×6 (00:37→19:59)
[2021-05-08] MEDS: METHYLPREDNISOLONE SOD SUCC 40 MG/ML VIAL IV SCH ×2 (00:42→06:27)
[2021-05-08] MEDS: SILDENAFIL CITRATE 20MG TABLET PO SCH ×3 (06:27→21:59)
[2021-05-08] MEDS: FUROSEMIDE 20MG/2ML VIAL IVP SCH ×2 (06:27→17:27)
[2021-05-08 07:12] LABS: HEMATOCRIT. 27.8 % (42.0-52.0); MEAN CORPUSCULAR HEMOGLOBIN 27.8 pg (28.0-32.0); MEAN CORPUSCULAR VOLUME 85.7 fL (80.0-94.0); MEAN PLATELET VOLUME 6.9 fl (7.4-10.4); PLATELET 476 x1000/uL (130-400); RED BLOOD CELL COUNT 3.25 mill/uL (4.7-6.1); RED CELL DISTRIBUTION WIDTH 18.8 % (11.6-14.6)
[2021-05-08 08:09] LABS: CHLORIDE 105 mEq/L (98-107)
[2021-05-08 08:20] LABS: CREATINE KINASE 827 IU/L (39-308)
[2021-05-08] MEDS: SODIUM CHLORIDE 0.9% 1,000 ML IV SCH ×2 (09:00→19:00)
[2021-05-08 09:11] LABS: RF PROFILE 45.9 IU/mL (<14.0)
[2021-05-08] MEDS: ASPIRIN 81MG TABLET PO SCH (09:51)
[2021-05-08] MEDS: APIXABAN 5 MG TABLET PO SCH ×2 (09:52→17:27)
[2021-05-08] MEDS ORDERED: ASPI-1406 MT (11:20)
[2021-05-08] MEDS ORDERED: FAMO20TA8 MT (11:44)
[2021-05-08] MEDS ORDERED: P20 MT (11:44)
[2021-05-08 13:11] LABS: ANTI-DNA DOUBLE STRANDED QUANT < 1 IU/mL (0-9)
[2021-05-08 14:39] LABS: PLATELET ESTIMATE INCREASED
[2021-05-08] MEDS: PREDNISONE 20MG TABLET PO SCH (15:34)
[2021-05-09] VITALS: BP 151/79
[2021-05-09] MEDS: ALBUTEROL (0.083%) 2.5MG/3ML NEB HHN SCH ×3 (00:07→08:43)
[2021-05-09] MEDS: SODIUM CHLORIDE 0.9% 1,000 ML IV SCH (05:00)
[2021-05-09] MEDS: FUROSEMIDE 20MG/2ML VIAL IVP SCH (07:01)
[2021-05-09] MEDS: SILDENAFIL CITRATE 20MG TABLET PO SCH (07:01)
[2021-05-09 08:18] VITALS: BP 124/62
[2021-05-09] MEDS: ASPIRIN 81MG TABLET PO SCH (08:36)
[2021-05-09] MEDS: PREDNISONE 20MG TABLET PO SCH (08:37)
[2021-05-09] MEDS: APIXABAN 5 MG TABLET PO SCH (08:37)
[2021-05-10 09:07] LABS: ALDOLASE 33.9 U/L (3.3-10.3); ANGIOTENSION CONVERTING ENZYME 49 U/L (14-82)
[2021-05-10 13:06] LABS: ANTI-MYELOPEROXIDASE AB < 9.0 U/mL (0.0-9.0); ANTI-PROTEINASE 3 ABS < 3.5 U/mL (0.0-3.5); ATYPICAL P-ANCA <1:20 titer (Neg:<1:20); CYTOPLASMIC C-ANCA <1:20 titer (Neg:<1:20); PERINUCLEAR P-ANCA <1:20 titer (Neg:<1:20)
[2021-05-10 19:10] LABS: CCP IgG/IgA PROFILE 10 units (0-19)
[2021-05-11 04:09] LABS: ANTI-CARDIOLIPIN AB IGG < 9 GPL U/mL (0-14); ANTI-CARDIOLIPIN AB IGM < 9 MPL U/mL (0-12)
== END 2021-05-09 12:00 | disposition home health service (06) | DRG 720 ==
LOC: ER 12:36 → 6WST 19:18 → EDBEDREQ 19:36 → EDBEDREQTM 19:36 → ENRESERV 21:40
PROVIDERS: ADMIT Internal Medicine; ATTEND Internal Medicine
DX: A41.9 Sepsis, unspecified organism (principal); J96.21 Acute and chronic respiratory failure with hypoxia; I50.33 Acute on chronic diastolic (congestive) heart failure; I27.21 Secondary pulmonary arterial hypertension; I31.3 Pericardial effusion (noninflammatory); J18.8 Other pneumonia, unspecified organism; E44.1 Mild protein-calorie malnutrition; I13.0 Hypertensive heart and chronic kidney disease with heart failure and stage 1 through stage 4 chronic kidney disease, or unspecified chronic kidney disease; J18.9 Pneumonia, unspecified organism; M62.82 Rhabdomyolysis; N18.9 Chronic kidney disease, unspecified; M60.9 Myositis, unspecified; J45.909 Unspecified asthma, uncomplicated; A49.9 Bacterial infection, unspecified; D72.810 Lymphocytopenia; Z20.822 Contact with and (suspected) exposure to COVID-19; E66.01 Morbid (severe) obesity due to excess calories; D64.9 Anemia, unspecified; Z79.899 Other long term (current) drug therapy; Z86.711 Personal history of pulmonary embolism; Z82.49 Family history of ischemic heart disease and other diseases of the circulatory system; Z79.01 Long term (current) use of anticoagulants; Z99.81 Dependence on supplemental oxygen; Z87.01 Personal history of pneumonia (recurrent); Z68.43 Body mass index [BMI] 50.0-59.9, adult; Z86.16 Personal history of COVID-19
CPT/HCPCS: 36415; 71045; 71275; 78580; 80048; 80053; 80061; 80305; 81003; 82085; 82164; 82550; 82553; 83520; 83735; 83880; 84145; 84484; 85025; 85379; 85651; 86147; 86200; 86225; 86235; 86256; 86431; 87070; 87389; 87426; 93005; 93306; 93970; 94640; 94667; 97116; 97162; 97166; 97530; 97535; 99291; C1893; J0456; J0696; J1650; J1940; J2920; J7030; J7060; J7512; J7608; Q9967

== ENCOUNTER 2022-05-01 13:02 | Emergency (ER) | payer MEDICAID ==
[~2022-05-01] VITALS: Ht 177.8 cm; Wt 181.8 kg
[~2022-05-01 13:02] MED LIST changes: +ALBU6.7H3 INH; -ALBU6.7H9 INH; +ASPI-1406 MT; +FAMO20TA8 MT; -FERR325T6 PO; -MULT-1146 MT; +P20 MT; -PROM6.254 PO; -TOPUD PO
[2022-05-01 13:06] VITALS: BP 141/94
== END 2022-05-01 15:54 | disposition left against medical advice (07) ==
LOC: ER 13:02
DX: R00.0 Tachycardia, unspecified (principal); I10 Essential (primary) hypertension; J45.909 Unspecified asthma, uncomplicated; Z86.711 Personal history of pulmonary embolism; Z79.01 Long term (current) use of anticoagulants
CPT/HCPCS: 82962; 93005; 99283